=== PATIENT | male | born 1995 | race Caucasian/White ===

== ENCOUNTER 2025-03-22 20:48 | Emergency (ER) | payer SELFPAY ==
[2025-03-22] MEDS ORDERED: Albuterol 2.5 MG (3 mL) NEB ONE (21:23)
[2025-03-22] MEDS ORDERED: Famotidine 20 MG TAB ONE (21:26)
[2025-03-22] MEDS ORDERED: predniSONE 20 MG TAB ONE (21:26)
== END 2025-03-23 00:36 | disposition home or self-care (01) ==
LOC: CSHERS 20:48
DX: J20.9 Acute bronchitis, unspecified (principal); F17.290 Nicotine dependence, other tobacco product, uncomplicated
CPT/HCPCS: 71045; 87426; 93005; 94644; 94760; J7512; J7611